=== PATIENT | female | born 1980 | race African-American/Black ===

== ENCOUNTER 2018-08-28 21:59 | Emergency (ER) | payer MEDICAID, OTHER ==
[~2018-08-28] VITALS: Ht 165.1 cm; Wt 57.2 kg
[2018-08-29] MEDS ORDERED: TETANUS, DIPHTHERIA, PERTUSSIS VAC/PF 0.5ML (>7YR OLD) IM ONE (02:00)
[2018-08-29] MEDS ORDERED: LIDOCAINE HCL/PF 1% 10 MG/ML 5ML VIAL IJ ONE (02:00)
[2018-08-29 04:44] VITALS: BP 123/76
== END 2018-08-29 04:46 | disposition home or self-care (01) ==
LOC: ER 21:59
DX: L02.01 Cutaneous abscess of face (principal); R03.0 Elevated blood-pressure reading, without diagnosis of hypertension; F12.90 Cannabis use, unspecified, uncomplicated
CPT/HCPCS: 10060; 81025; 90471; 90715; 99283; J3490

== ENCOUNTER 2018-09-04 17:29 | Emergency (ER) | payer MEDICAID ==
[~2018-09-04] VITALS: Ht 165.1 cm; Wt 57.0 kg
[2018-09-04 22:14] VITALS: BP 113/75
== END 2018-09-04 22:16 | disposition home or self-care (01) ==
LOC: ER 21:19
DX: Z48.01 Encounter for change or removal of surgical wound dressing (principal); F12.10 Cannabis abuse, uncomplicated
CPT/HCPCS: 99282

== ENCOUNTER 2019-04-09 17:53 | Emergency (ER) | payer SELFPAY ==
[~2019-04-09] VITALS: Ht 165.1 cm; Wt 73.0 kg
[2019-04-09 18:07] VITALS: BP 167/111
== END 2019-04-09 20:38 | disposition left against medical advice (07) ==
LOC: ER 17:53
DX: Z53.21 Procedure and treatment not carried out due to patient leaving prior to being seen by health care provider (principal)

== ENCOUNTER 2019-12-02 13:02 | Emergency (ER) | payer SELFPAY ==
[~2019-12-02] VITALS: Ht 165.1 cm; Wt 59.0 kg
[2019-12-02 14:36] LABS: EOSINOPHILS % 1.7 % (0.0-5.0); HEMATOCRIT. 25.3 % (36.0-48.0); HEMOGLOBIN. 8.5 g/dL (12.0-16.0); MEAN CORPUSCULAR HEMOGLOBIN 30.9 pg (28.0-32.0); MEAN CORPUSCULAR VOLUME 91.6 fL (81.0-99.0); MEAN PLATELET VOLUME 11.1 fl (7.4-10.4); MONOCYTES % 9.8 % (2.0-8.0); NEUTROPHILS % 58.5 % (40.0-76.0); PLATELET 237 x1000/uL (130-400); RED BLOOD CELL COUNT 2.77 mill/uL (4.2-5.4); RED CELL DISTRIBUTION WIDTH 15.2 % (11.6-14.6)
[2019-12-02 14:41] LABS: CHLORIDE 97 mEq/L (98-107)
[2019-12-02] MEDS ORDERED: IOHEXOL-350 100 ML BOTTLE ONE (16:33)
[2019-12-02 17:02] VITALS: BP 126/77
== END 2019-12-02 17:07 | disposition home or self-care (01) ==
LOC: ER 13:02
DX: R60.0 Localized edema (principal); R03.0 Elevated blood-pressure reading, without diagnosis of hypertension; Z91.81 History of falling
CPT/HCPCS: 36415; 71045; 71275; 80053; 81025; 83880; 84484; 85025; 85379; 93005; 93970; 99285; Q9967